=== PATIENT | female | born 1995 | race Caucasian/White ===

== ENCOUNTER 2017-05-19 06:39 | Emergency (ER) | payer SELFPAY | END 2017-05-19 07:53 | disposition left against medical advice (07) | LOC: EMS 06:41 | DX: Z53.21 Procedure and treatment not carried out due to patient leaving prior to being seen by health care provider (principal) ==

== ENCOUNTER 2017-09-17 18:55 | Inpatient (IN) | payer BC, MEDICAID ==
[~2017-09-17] VITALS: Ht 149.9 cm; Wt 49.0 kg
[2017-09-17] MEDS ORDERED: ZOLPIDEM TARTRATE 10 MG TABLET PO PRN (20:45)
[2017-09-17] MEDS ORDERED: OLANZapine 5 MG RAPDIS TABLET PO PRN (20:45)
[2017-09-17 21:08] LABS: BASOPHILS # (AUTO) 0.07 K/uL (0.00-0.20); BASOPHILS % (AUTO) 0.7 % (0.0-2.0); EOSINOPHILS # (AUTO) 0.03 K/uL (0.00-0.70); EOSINOPHILS % (AUTO) 0.23 % (1.0-6.0); HEMATOCRIT 38.8 % (36-46); HEMOGLOBIN 13.1 g/dL (12.0-16.0); LYMPHOCYTES % (AUTO) 18.2 % (22.0-44.0); MEAN CORPUSCULAR HEMOGLOBIN 30.8 pg (26.0-34.0); MEAN CORPUSCULAR HGB CONC 33.7 G/dL (31.0-37.0); MEAN CORPUSCULAR VOLUME 91 fL (80-100); MONOCYTES # (AUTO) 0.6 K/uL (0.1-1.0); MONOCYTES % (AUTO) 5.1 % (2.0-9.0); NEUTROPHILS # (AUTO) 8.4 K/uL (1.8-7.7); NEUTROPHILS % (AUTO) 75.8 % (40.0-70.0); PLATELET COUNT (AUTO) 219 K/uL (150-450); RED BLOOD CELL COUNT(AUTO) 4.25 MIL/uL (4.00-5.20); RED CELL DISTRIBUTION WIDTH 14.2 % (11.5-14.5); WHITE BLOOD COUNT (AUTO) 11.1 K/uL (4.5-11.0)
[2017-09-17 21:17] LABS: ANION GAP 15 mmol/L (8-16); CALCIUM, TOTAL 9.4 mg/dL (8.8-10.5); CARBON DIOXIDE 20 mmol/L (22-29); CHLORIDE 102 mmol/L (98-107); CREATININE 0.97 mg/dL (0.60-1.30); GLOMERULAR FILTR. RATE CALC > 60 mL/min (>60); POTASSIUM 3.4 mmol/L (3.5-5.1); SODIUM SERUM 137 mmol/L (136-145); UREA NITROGEN, BLOOD 15 mg/dL (7-18)
[2017-09-17 21:23] LABS: ALANINE AMINOTRANSFERASE 20 U/L (12-78); ASPARTATE AMINOTRANSFERASE 23 U/L (15-37); BILIRUBIN,TOTAL 1.7 mg/dL (0.1-1.0); TOTAL PROTEIN, SERUM 8.4 g/dL (6.4-8.2)
[2017-09-17 22:29] VITALS: BP 120/78
[2017-09-17] MEDS ORDERED: INFLUENZA VIRUS VACCINE QVS 2017-18 (3YR+)/PF 60 MCG/0.5 ML SYRINGE IM ONE (22:30)
[2017-09-18 07:11] VITALS: BP 110/62
[2017-09-18] MEDS ORDERED: POTASSIUM CHLORIDE 20 MEQ ER TABLET PO ONE (09:00)
[2017-09-18] MEDS ORDERED: ACETAMINOPHEN 325 MG TABLET PO PRN (13:00)
[2017-09-18] MEDS ORDERED: GuaiFENesin/D-METHORPHAN [SUGAR-FREE] 200-20MG/10 ML SYRUP UDCUP PO PRN (13:00)
[2017-09-18] MEDS ORDERED: MAGNESIUM HYDROXIDE SUSPENSION 30 ML UDCUP PO PRN (13:00)
[2017-09-18] MEDS ORDERED: MAG HYDROX/AL HYDROX/SIMETH ES 30 ML SUSPENSION UDCUP PO PRN (13:00)
[2017-09-18] MEDS ORDERED: LOPERAMIDE HCL 2 MG CAPSULE PO PRN (13:00)
[2017-09-18] MEDS ORDERED: TUBERCULIN, PURIFIED PROTEIN DERIVATIVE 5 TU/0.1 ML SYG ID ONE (13:00)
[2017-09-18] MEDS: GABAPENTIN 100 MG CAPSULE PO SCH ×2 (13:00→17:00)
[2017-09-18] MEDS ORDERED: HydrOXYzine PAMOATE 50 MG CAPSULE PO PRN (13:00)
[2017-09-18] MEDS ORDERED: PROMETHAZINE HCL 25 MG TABLET PO PRN (13:00)
[2017-09-18] MEDS: THIAMINE HCL 100 MG TABLET PO SCH (17:00)
[2017-09-18] MEDS: DIVALPROEX SODIUM 500 MG ER TABLET PO SCH (21:00)
[2017-09-18] MEDS: OLANZapine 5 MG RAPDIS TABLET PO SCH (21:00)
[2017-09-19 01:16] VITALS: BP 110/62
[2017-09-19] MEDS: MULTIVITAMINS WITH MINERALS, THERAPEUTIC TABLET PO SCH (08:32)
[2017-09-19] MEDS: FOLIC ACID 1 MG TABLET PO SCH (08:32)
[2017-09-19] MEDS: FLUoxetine HCL 20 MG CAPSULE PO SCH (08:32)
[2017-09-19] MEDS: THIAMINE HCL 100 MG TABLET PO SCH ×2 (08:32→16:45)
[2017-09-19] MEDS: LORazepam 2 MG TABLET PO PRN ×2 (08:33→16:15)
[2017-09-19] MEDS: GABAPENTIN 100 MG CAPSULE PO SCH ×3 (08:34→16:45)
[2017-09-19 08:37] VITALS: BP 118/74
[2017-09-19] MEDS: DIVALPROEX SODIUM 500 MG ER TABLET PO SCH (21:00)
[2017-09-19] MEDS: OLANZapine 5 MG RAPDIS TABLET PO SCH (21:00)
[2017-09-20 08:46] VITALS: BP 110/62
[2017-09-20] MEDS: THIAMINE HCL 100 MG TABLET PO SCH ×2 (09:28→16:52)
[2017-09-20] MEDS: GABAPENTIN 100 MG CAPSULE PO SCH ×3 (09:28→16:52)
[2017-09-20] MEDS: FOLIC ACID 1 MG TABLET PO SCH (09:28)
[2017-09-20] MEDS: FLUoxetine HCL 20 MG CAPSULE PO SCH (09:28)
[2017-09-20] MEDS: LORazepam 2 MG TABLET PO PRN (09:28)
[2017-09-20] MEDS: MULTIVITAMINS WITH MINERALS, THERAPEUTIC TABLET PO SCH (09:28)
[2017-09-20 16:26] VITALS: BP 106/68
[2017-09-20] MEDS: DIVALPROEX SODIUM 500 MG ER TABLET PO SCH (20:08)
[2017-09-20] MEDS: OLANZapine 5 MG RAPDIS TABLET PO SCH (20:08)
[2017-09-21] MEDS: GABAPENTIN 100 MG CAPSULE PO SCH ×3 (08:28→17:00)
[2017-09-21] MEDS: FLUoxetine HCL 20 MG CAPSULE PO SCH (08:28)
[2017-09-21] MEDS: THIAMINE HCL 100 MG TABLET PO SCH ×2 (08:28→17:00)
[2017-09-21] MEDS: MULTIVITAMINS WITH MINERALS, THERAPEUTIC TABLET PO SCH (08:29)
[2017-09-21] MEDS: FOLIC ACID 1 MG TABLET PO SCH (08:29)
[2017-09-21 08:43] VITALS: BP 114/71
[2017-09-21] MEDS: OLANZapine 10 MG RAPDIS TABLET PO SCH (20:46)
[2017-09-21] MEDS: DIVALPROEX SODIUM 500 MG ER TABLET PO SCH (20:46)
[2017-09-22 06:25] VITALS: BP 118/80
[2017-09-22 08:03] VITALS: BP 120/72
[2017-09-22] MEDS: MULTIVITAMINS WITH MINERALS, THERAPEUTIC TABLET PO SCH (09:37)
[2017-09-22] MEDS: THIAMINE HCL 100 MG TABLET PO SCH ×2 (09:38→17:22)
[2017-09-22] MEDS: FOLIC ACID 1 MG TABLET PO SCH (09:38)
[2017-09-22] MEDS: GABAPENTIN 100 MG CAPSULE PO SCH ×3 (09:38→17:22)
[2017-09-22] MEDS: FLUoxetine HCL 20 MG CAPSULE PO SCH (09:38)
[2017-09-22 17:28] VITALS: BP 114/64
[2017-09-22] MEDS: DIVALPROEX SODIUM 500 MG ER TABLET PO SCH (21:03)
[2017-09-22] MEDS: OLANZapine 10 MG RAPDIS TABLET PO SCH (21:04)
[2017-09-23 07:19] VITALS: BP 116/65
[2017-09-23] MEDS: THIAMINE HCL 100 MG TABLET PO SCH ×3 (09:00→16:39)
[2017-09-23] MEDS: FLUoxetine HCL 20 MG CAPSULE PO SCH ×2 (09:00→09:11)
[2017-09-23] MEDS: MULTIVITAMINS WITH MINERALS, THERAPEUTIC TABLET PO SCH ×2 (09:00→09:11)
[2017-09-23] MEDS: GABAPENTIN 100 MG CAPSULE PO SCH ×4 (09:00→16:39)
[2017-09-23] MEDS: FOLIC ACID 1 MG TABLET PO SCH ×2 (09:00→09:11)
[2017-09-23 09:48] VITALS: BP 116/66
[2017-09-23 16:45] VITALS: BP 117/68
[2017-09-23] MEDS: DIVALPROEX SODIUM 500 MG ER TABLET PO SCH (20:10)
[2017-09-23] MEDS: OLANZapine 10 MG RAPDIS TABLET PO SCH (20:10)
[2017-09-24] MEDS: FOLIC ACID 1 MG TABLET PO SCH (08:51)
[2017-09-24] MEDS: GABAPENTIN 100 MG CAPSULE PO SCH ×3 (08:51→16:35)
[2017-09-24] MEDS: FLUoxetine HCL 20 MG CAPSULE PO SCH (08:51)
[2017-09-24] MEDS: MULTIVITAMINS WITH MINERALS, THERAPEUTIC TABLET PO SCH (08:51)
[2017-09-24] MEDS: THIAMINE HCL 100 MG TABLET PO SCH ×2 (08:51→16:34)
[2017-09-24] MEDS ORDERED: DIVA500T52 PO (15:29)
[2017-09-24] MEDS ORDERED: FLUO-191 PO (15:29)
[2017-09-24] MEDS ORDERED: OLAN10TA22 PO (15:29)
[2017-09-24 16:04] VITALS: BP 111/72
[2017-09-24] MEDS ORDERED: GABA-529 PO (16:33)
[2017-09-25] MEDS ORDERED: FLUoxetine HCL 20 MG CAPSULE PO SCH (09:00)
== END 2017-09-24 18:45 | disposition home or self-care (01) | DRG 885 ==
LOC: EMS 18:56 → B3A 21:12
PROVIDERS: ADMIT Psychiatry & Neurology Psychiatry; ATTEND Psychiatry & Neurology Psychiatry
DX: F25.9 Schizoaffective disorder, unspecified (principal); Z91.19 Patient's noncompliance with other medical treatment and regimen; E78.5 Hyperlipidemia, unspecified; E87.6 Hypokalemia; G47.00 Insomnia, unspecified; F32.9 Major depressive disorder, single episode, unspecified; Z91.83 Wandering in diseases classified elsewhere; Z91.5 Personal history of self-harm; Z83.3 Family history of diabetes mellitus; Z83.49 Family history of other endocrine, nutritional and metabolic diseases; Z28.21 Immunization not carried out because of patient refusal
CPT/HCPCS: 99285; G0480

== ENCOUNTER 2017-10-22 15:48 | Inpatient (IN) | payer BC, MEDICAID ==
[~2017-10-22] VITALS: Ht 154.9 cm; Wt 59.4 kg
[~2017-10-22 15:48] MED LIST: DIVA500T52 PO; FLUO-191 PO; GABA-529 PO; OLAN10TA22 PO
[2017-10-22 18:05] LABS: BASOPHILS # (AUTO) 0.06 K/uL (0.00-0.20); BASOPHILS % (AUTO) 0.9 % (0.0-2.0); EOSINOPHILS % (AUTO) 0.04 % (1.0-6.0); HEMATOCRIT 38.2 % (36-46); HEMOGLOBIN 12.8 g/dL (12.0-16.0); LYMPHOCYTES # (AUTO) 0.9 K/uL (1.0-4.8); LYMPHOCYTES % (AUTO) 14.7 % (22.0-44.0); MEAN CORPUSCULAR HEMOGLOBIN 30.7 pg (26.0-34.0); MEAN CORPUSCULAR HGB CONC 33.5 G/dL (31.0-37.0); MEAN CORPUSCULAR VOLUME 92 fL (80-100); MONOCYTES # (AUTO) 0.5 K/uL (0.1-1.0); MONOCYTES % (AUTO) 7.2 % (2.0-9.0); NEUTROPHILS # (AUTO) 4.9 K/uL (1.8-7.7); NEUTROPHILS % (AUTO) 77.2 % (40.0-70.0); PLATELET COUNT (AUTO) 218 K/uL (150-450); RED BLOOD CELL COUNT(AUTO) 4.15 MIL/uL (4.00-5.20); RED CELL DISTRIBUTION WIDTH 14.2 % (11.5-14.5); WHITE BLOOD COUNT (AUTO) 6.4 K/uL (4.5-11.0)
[2017-10-22 18:13] LABS: ANION GAP 15 mmol/L (8-16); CALCIUM, TOTAL 8.9 mg/dL (8.8-10.5); CARBON DIOXIDE 20 mmol/L (22-29); CHLORIDE 100 mmol/L (98-107); CREATININE 0.87 mg/dL (0.60-1.30); GLOMERULAR FILTR. RATE CALC > 60 mL/min (>60); POTASSIUM 3.5 mmol/L (3.5-5.1); SODIUM SERUM 135 mmol/L (136-145); UREA NITROGEN, BLOOD 13 mg/dL (7-18)
[2017-10-22] MEDS ORDERED: OLANZapine 5 MG RAPDIS TABLET PO PRN (18:15)
[2017-10-22 18:20] LABS: ALANINE AMINOTRANSFERASE 21 U/L (12-78); ALBUMIN 4.2 g/dL (3.4-5.0); ASPARTATE AMINOTRANSFERASE 17 U/L (15-37); TOTAL PROTEIN, SERUM 8.1 g/dL (6.4-8.2)
[2017-10-22] MEDS: GABAPENTIN 100 MG CAPSULE PO SCH (19:28)
[2017-10-22 20:14] VITALS: BP 115/66
[2017-10-22] MEDS ORDERED: INFLUENZA VIRUS VACCINE QVS 2017-18 (3YR+)/PF 60 MCG/0.5 ML SYRINGE IM ONE (20:15)
[2017-10-22] MEDS: DIVALPROEX SODIUM 500 MG ER TABLET PO SCH (21:00)
[2017-10-22] MEDS: OLANZapine 10 MG RAPDIS TABLET PO SCH (21:00)
[2017-10-22] MEDS: ZOLPIDEM TARTRATE 10 MG TABLET PO PRN (23:50)
[2017-10-22] MEDS: LORazepam 2 MG TABLET PO PRN (23:50)
[2017-10-23 08:30] VITALS: BP 118/60
[2017-10-23 08:58] LABS: CHOL/HDL RATIO 3.1 (3.9-5.7)
[2017-10-23] MEDS: GABAPENTIN 100 MG CAPSULE PO SCH ×3 (09:16→16:46)
[2017-10-23] MEDS: FLUoxetine HCL 20 MG CAPSULE PO SCH (09:16)
[2017-10-23] MEDS ORDERED: PROMETHAZINE HCL 25 MG TABLET PO PRN ×2 (09:30)
[2017-10-23] MEDS ORDERED: GuaiFENesin/D-METHORPHAN [SUGAR-FREE] 200-20MG/10 ML SYRUP UDCUP PO PRN (09:30)
[2017-10-23] MEDS ORDERED: ACETAMINOPHEN 325 MG TABLET PO PRN (09:30)
[2017-10-23] MEDS ORDERED: MAG HYDROX/AL HYDROX/SIMETH ES 30 ML SUSPENSION UDCUP PO PRN (09:30)
[2017-10-23] MEDS ORDERED: LOPERAMIDE HCL 2 MG CAPSULE PO PRN (09:30)
[2017-10-23] MEDS ORDERED: MAGNESIUM HYDROXIDE SUSPENSION 30 ML UDCUP PO PRN (09:30)
[2017-10-23] MEDS: LORazepam 2 MG TABLET PO PRN (14:15)
[2017-10-23 16:08] VITALS: BP 100/60
[2017-10-23] MEDS: THIAMINE HCL 100 MG TABLET PO SCH (16:46)
[2017-10-23] MEDS: DIVALPROEX SODIUM 500 MG ER TABLET PO SCH (20:10)
[2017-10-23] MEDS: OLANZapine 10 MG RAPDIS TABLET PO SCH (20:13)
[2017-10-24 07:00] VITALS: BP 115/62
[2017-10-24 08:02] LABS: BASOPHILS % (AUTO) 0.9 % (0.0-2.0); EOSINOPHILS % (AUTO) 0.1 % (1.0-6.0); HEMATOCRIT 37.9 % (36-46); HEMOGLOBIN 12.9 g/dL (12.0-16.0); LYMPHOCYTES # (AUTO) 2.6 K/uL (1.0-4.8); MEAN CORPUSCULAR HEMOGLOBIN 31.5 pg (26.0-34.0); MEAN CORPUSCULAR VOLUME 92 fL (80-100); MONOCYTES # (AUTO) 0.6 K/uL (0.1-1.0); MONOCYTES % (AUTO) 10.6 % (2.0-9.0); NEUTROPHILS # (AUTO) 2.5 K/uL (1.8-7.7); NEUTROPHILS % (AUTO) 43.4 % (40.0-70.0); PLATELET COUNT (AUTO) 212 K/uL (150-450); RED CELL DISTRIBUTION WIDTH 14.5 % (11.5-14.5); WHITE BLOOD COUNT (AUTO) 5.7 K/uL (4.5-11.0)
[2017-10-24 08:24] LABS: ALANINE AMINOTRANSFERASE 17 U/L (12-78); ALBUMIN 3.6 g/dL (3.4-5.0); ANION GAP 7 mmol/L (8-16); ASPARTATE AMINOTRANSFERASE 12 U/L (15-37); BILIRUBIN,TOTAL 0.4 mg/dL (0.1-1.0); CALCIUM, TOTAL 8.7 mg/dL (8.8-10.5); CARBON DIOXIDE 28 mmol/L (22-29); CHLORIDE 105 mmol/L (98-107); CREATININE 1.02 mg/dL (0.60-1.30); GLOMERULAR FILTR. RATE CALC > 60 mL/min (>60); POTASSIUM 3.9 mmol/L (3.5-5.1); SODIUM SERUM 140 mmol/L (136-145); TOTAL PROTEIN, SERUM 7.4 g/dL (6.4-8.2); UREA NITROGEN, BLOOD 14 mg/dL (7-18)
[2017-10-24 08:27] VITALS: BP 118/62
[2017-10-24] MEDS: FOLIC ACID 1 MG TABLET PO SCH (08:40)
[2017-10-24] MEDS: MULTIVITAMINS WITH MINERALS, THERAPEUTIC TABLET PO SCH (08:40)
[2017-10-24] MEDS: FLUoxetine HCL 20 MG CAPSULE PO SCH (08:40)
[2017-10-24] MEDS: GABAPENTIN 100 MG CAPSULE PO SCH ×3 (08:40→17:04)
[2017-10-24] MEDS: THIAMINE HCL 100 MG TABLET PO SCH ×2 (08:41→17:04)
[2017-10-24] MEDS: LORazepam 2 MG TABLET PO PRN ×2 (08:47→16:05)
[2017-10-24 16:19] VITALS: BP 111/69
[2017-10-24] MEDS: DIVALPROEX SODIUM 500 MG ER TABLET PO SCH (20:15)
[2017-10-24] MEDS: OLANZapine 10 MG RAPDIS TABLET PO SCH (20:15)
[2017-10-24] MEDS: ZOLPIDEM TARTRATE 10 MG TABLET PO PRN (21:48)
[2017-10-25 07:12] VITALS: BP 100/60
[2017-10-25] MEDS: FOLIC ACID 1 MG TABLET PO SCH (09:42)
[2017-10-25] MEDS: GABAPENTIN 100 MG CAPSULE PO SCH ×2 (09:42→13:29)
[2017-10-25] MEDS: MULTIVITAMINS WITH MINERALS, THERAPEUTIC TABLET PO SCH (09:42)
[2017-10-25] MEDS: FLUoxetine HCL 20 MG CAPSULE PO SCH (09:42)
[2017-10-25] MEDS: THIAMINE HCL 100 MG TABLET PO SCH ×2 (09:44→16:20)
[2017-10-25] MEDS ORDERED: DIVA500T52 PO (14:43)
[2017-10-25] MEDS ORDERED: OLAN10TA22 PO (14:43)
[2017-10-25 16:22] VITALS: BP 133/85
[2017-10-25] MEDS: DIVALPROEX SODIUM 500 MG ER TABLET PO SCH (20:15)
[2017-10-25] MEDS: OLANZapine 10 MG RAPDIS TABLET PO SCH (20:16)
[2017-10-25] MEDS: LORazepam 2 MG TABLET PO PRN (20:16)
[2017-10-25] MEDS: ZOLPIDEM TARTRATE 10 MG TABLET PO PRN (20:16)
[2017-10-26 08:30] VITALS: BP 120/70
[2017-10-26] MEDS: MULTIVITAMINS WITH MINERALS, THERAPEUTIC TABLET PO SCH (08:30)
[2017-10-26] MEDS: FOLIC ACID 1 MG TABLET PO SCH (08:30)
[2017-10-26] MEDS: THIAMINE HCL 100 MG TABLET PO SCH (08:30)
== END 2017-10-26 14:10 | disposition home or self-care (01) | DRG 885 ==
LOC: EMS 15:49 → B3A 19:12
PROVIDERS: ADMIT Psychiatry & Neurology Psychiatry; ATTEND Psychiatry & Neurology Psychiatry
DX: F25.9 Schizoaffective disorder, unspecified (principal); R45.851 Suicidal ideations; Z91.19 Patient's noncompliance with other medical treatment and regimen; Z28.21 Immunization not carried out because of patient refusal; Z79.899 Other long term (current) drug therapy; Z65.3 Problems related to other legal circumstances; Z63.9 Problem related to primary support group, unspecified
CPT/HCPCS: 87081; 90471; 99285; G0480

== ENCOUNTER 2018-01-04 16:38 | Inpatient (IN) | payer BC, MEDICAID ==
[~2018-01-04] VITALS: Ht 152.4 cm; Wt 62.1 kg
[~2018-01-04 16:38] MED LIST changes: -FLUO-191 PO; -GABA-529 PO
[2018-01-04] MEDS ORDERED: RISP2 PO (17:47)
[2018-01-04] MEDS ORDERED: HALOPERIDOL 5 MG TABLET PO PRN (20:00)
[2018-01-04] MEDS ORDERED: LORazepam 2 MG TABLET PO PRN (20:00)
[2018-01-04 20:10] LABS: BASOPHILS % (AUTO) 0.3 % (0.0-2.0); EOSINOPHILS % (AUTO) 0 % (1.0-6.0); HEMATOCRIT 35.7 % (36-46); LYMPHOCYTES # (AUTO) 2.2 K/uL (1.0-4.8); LYMPHOCYTES % (AUTO) 29.3 % (22.0-44.0); MEAN CORPUSCULAR HGB CONC 33.6 G/dL (31.0-37.0); MEAN CORPUSCULAR VOLUME 89 fL (80-100); MONOCYTES # (AUTO) 0.5 K/uL (0.1-1.0); MONOCYTES % (AUTO) 6.1 % (2.0-9.0); NEUTROPHILS # (AUTO) 4.8 K/uL (1.8-7.7); NEUTROPHILS % (AUTO) 64.3 % (40.0-70.0); PLATELET COUNT (AUTO) 181 K/uL (150-450); RED BLOOD CELL COUNT(AUTO) 4.01 MIL/uL (4.00-5.20); RED CELL DISTRIBUTION WIDTH 14.8 % (11.5-14.5)
[2018-01-04 20:36] LABS: AMPHET/METH SCREEN,URINE NEGATIVE (NEGATIVE); BARBITURATE SCREEN, URINE NEGATIVE (NEGATIVE); BENZODIAZEPINES SCREEN,URINE NEGATIVE (NEGATIVE); CANNABINOID SCREEN,URINE POSITIVE (NEGATIVE); COCAINE SCREEN,URINE NEGATIVE (NEGATIVE); METHADONE SCREEN, URINE NEGATIVE (NEGATIVE); OPIATE SCREEN,URINE NEGATIVE (NEGATIVE)
[2018-01-04 20:37] LABS: PHENCYCLIDINE SCREEN,URINE NEGATIVE (NEGATIVE)
[2018-01-04 20:45] LABS: ANION GAP 10 mmol/L (8-16); CALCIUM, TOTAL 8.7 mg/dL (8.8-10.5); CARBON DIOXIDE 26 mmol/L (22-29); CHLORIDE 104 mmol/L (98-107); CREATININE 0.62 mg/dL (0.60-1.30); GLOMERULAR FILTR. RATE CALC > 60 mL/min (>60); GLUCOSE,RANDOM 120 mg/dL (70-110); POTASSIUM 3.8 mmol/L (3.5-5.1); SODIUM SERUM 140 mmol/L (136-145); UREA NITROGEN, BLOOD 21 mg/dL (7-18)
[2018-01-04 20:49] LABS: ALANINE AMINOTRANSFERASE 29 U/L (12-78); ALBUMIN 3.7 g/dL (3.4-5.0); ALKALINE PHOSPHATASE 86 U/L (46-116); ASPARTATE AMINOTRANSFERASE 20 U/L (15-37); BILIRUBIN,TOTAL 0.2 mg/dL (0.1-1.0); TOTAL PROTEIN, SERUM 7.1 g/dL (6.4-8.2)
[2018-01-04] MEDS ORDERED: OLANZapine 10 MG TABLET PO SCH (21:00)
[2018-01-04 21:21] VITALS: BP 102/60
[2018-01-05 09:45] VITALS: BP 90/58
[2018-01-05 10:21] LABS: APPEARANCE,URINE CLEAR (CLEAR); BILIRUBIN,URINE NEGATIVE (NEGATIVE); GLUCOSE, URINE (UA) NEGATIVE (NEGATIVE); KETONES,URINE NEGATIVE (NEGATIVE); LEUKOCYTE ESTERASE ,URINE NEGATIVE (NEGATIVE); NITRATE,URINE NEGATIVE (NEGATIVE); OCCULT BLOOD,URINE NEGATIVE (NEGATIVE); PH,URINE 7.5 (5.0-8.0); PROTEIN,URINE NEGATIVE (NEGATIVE); UROBILINOGEN,URINE 0.2 mg/dL (<=1.0)
[2018-01-05] MEDS: DIVALPROEX SODIUM 500 MG ER TABLET PO SCH (20:11)
[2018-01-05] MEDS: OLANZapine 10 MG TABLET PO SCH (20:12)
[2018-01-05 21:15] VITALS: BP 106/69
[2018-01-05] MEDS: ZOLPIDEM TARTRATE 10 MG TABLET PO PRN (21:23)
[2018-01-06 02:23] VITALS: BP 98/67
[2018-01-06 08:45] VITALS: BP 92/58
[2018-01-06] MEDS: OLANZapine 5 MG TABLET PO SCH ×2 (08:53→10:00)
[2018-01-06 17:00] VITALS: BP 100/55
[2018-01-06] MEDS: DIVALPROEX SODIUM 500 MG ER TABLET PO SCH (20:21)
[2018-01-06] MEDS: OLANZapine 10 MG TABLET PO SCH (20:21)
[2018-01-06] MEDS: ZOLPIDEM TARTRATE 10 MG TABLET PO PRN (21:00)
[2018-01-07 03:52] VITALS: BP 103/80
[2018-01-07 08:46] VITALS: BP 98/57
[2018-01-07] MEDS: OLANZapine 5 MG TABLET PO SCH (08:51)
[2018-01-07] MEDS ORDERED: DIVA500T52 PO (12:45)
[2018-01-07] MEDS ORDERED: OLAN10TA3 PO (12:46)
[2018-01-07] MEDS ORDERED: OLAN5TAB2 PO (12:46)
== END 2018-01-07 14:15 | disposition home or self-care (01) | DRG 885 ==
LOC: EMS 16:39 → 3EI 20:06 → 3EX 20:06
DX: F25.1 Schizoaffective disorder, depressive type (principal); E87.1 Hypo-osmolality and hyponatremia; F12.20 Cannabis dependence, uncomplicated; E87.6 Hypokalemia; Z87.891 Personal history of nicotine dependence; Z79.899 Other long term (current) drug therapy; Z82.69 Family history of other diseases of the musculoskeletal system and connective tissue; Z83.3 Family history of diabetes mellitus
CPT/HCPCS: G0480

== ENCOUNTER 2018-07-08 08:48 | Emergency (ER) | payer BC, OTHER ==
[~2018-07-08] VITALS: Ht 157.5 cm; Wt 54.5 kg
[~2018-07-08 08:48] MED LIST changes: -OLAN10TA22 PO; +OLAN10TA3 PO; +OLAN5TAB2 PO
[2018-07-08] MEDS ORDERED: TRAZ-219 PO (12:27)
[2018-07-08] MEDS ORDERED: HYDR50CA10 PO (12:27)
[2018-07-08] MEDS ORDERED: LORA1TAB3 PO (12:27)
[2018-07-08 12:48] LABS: BASOPHILS % (AUTO) 0.6 % (0.0-2.0); EOSINOPHILS % (AUTO) 0 % (1.0-6.0); HEMATOCRIT 39.4 % (36-46); HEMOGLOBIN 13.2 g/dL (12.0-16.0); LYMPHOCYTES # (AUTO) 2.2 K/uL (1.0-4.8); MEAN CORPUSCULAR HEMOGLOBIN 30.9 pg (26.0-34.0); MEAN CORPUSCULAR HGB CONC 33.7 G/dL (31.0-37.0); MEAN CORPUSCULAR VOLUME 92 fL (80-100); MONOCYTES # (AUTO) 0.4 K/uL (0.1-1.0); MONOCYTES % (AUTO) 6.4 % (2.0-9.0); NEUTROPHILS # (AUTO) 4.2 K/uL (1.8-7.7); PLATELET COUNT (AUTO) 235 K/uL (150-450); RED BLOOD CELL COUNT(AUTO) 4.29 MIL/uL (4.00-5.20); RED CELL DISTRIBUTION WIDTH 15.6 % (11.5-14.5)
[2018-07-08 12:53] LABS: ANION GAP 8 mmol/L (8-16); CARBON DIOXIDE 27 mmol/L (22-29); CHLORIDE 102 mmol/L (98-107); CREATININE 0.86 mg/dL (0.60-1.30); GLOMERULAR FILTR. RATE CALC > 60 mL/min (>60); GLUCOSE,RANDOM 100 mg/dL (70-110); SODIUM SERUM 137 mmol/L (136-145); UREA NITROGEN, BLOOD 16 mg/dL (7-18)
[2018-07-08 12:59] LABS: ALANINE AMINOTRANSFERASE 16 U/L (12-78); ALKALINE PHOSPHATASE 74 U/L (46-116); ASPARTATE AMINOTRANSFERASE 14 U/L (15-37); BILIRUBIN,TOTAL 0.4 mg/dL (0.1-1.0)
[2018-07-08] MEDS ORDERED: LORazepam 2 MG TABLET PO ONE (13:15)
[2018-07-08 14:19] VITALS: BP 100/60
== END 2018-07-08 15:36 | disposition home or self-care (01) ==
LOC: EMS 08:49
DX: F41.9 Anxiety disorder, unspecified (principal); R45.851 Suicidal ideations; F25.9 Schizoaffective disorder, unspecified; Z79.899 Other long term (current) drug therapy
CPT/HCPCS: 80053; 84703; 85025; 99285; G0480

== ENCOUNTER 2022-08-01 15:43 | Inpatient (IN) | payer MEDICAID ==
[~2022-08-01] VITALS: Ht 149.9 cm; Wt 63.0 kg
[~2022-08-01 15:43] MED LIST changes: -DIVA500T52 PO; +LITH300C3 PO; -OLAN10TA3 PO; -OLAN5TAB2 PO; +RISP3TAB44 PO
[2022-08-01 19:55] VITALS: BP 94/61
[2022-08-01] MEDS: LORazepam 2 MG TABLET PO PRN (20:55)
[2022-08-02 07:19] LABS: BASOPHILS % (AUTO) 0.1 % (0.0-2.0); EOSINOPHILS % (AUTO) 0 % (1.0-6.0); HEMATOCRIT 40.6 % (36-46); HEMOGLOBIN 13.1 g/dL (12.0-16.0); LYMPHOCYTES # (AUTO) 2.8 K/uL (1.0-4.8); LYMPHOCYTES % (AUTO) 38.3 % (22.0-44.0); MEAN CORPUSCULAR HEMOGLOBIN 29.4 pg (26.0-34.0); MEAN CORPUSCULAR HGB CONC 32.4 G/dL (31.0-37.0); MEAN CORPUSCULAR VOLUME 91 fL (80-100); MONOCYTES # (AUTO) 0.6 K/uL (0.1-1.0); MONOCYTES % (AUTO) 7.8 % (2.0-9.0); NEUTROPHILS # (AUTO) 3.9 K/uL (1.8-7.7); NEUTROPHILS % (AUTO) 53.8 % (40.0-70.0); PLATELET COUNT (AUTO) 205 K/uL (150-450); RED BLOOD CELL COUNT(AUTO) 4.46 MIL/uL (4.00-5.20); RED CELL DISTRIBUTION WIDTH 14.3 % (11.5-14.5)
[2022-08-02 07:33] LABS: HEMOGLOBIN A1C 5.4 % (3.8-5.6)
[2022-08-02 07:59] LABS: ALANINE AMINOTRANSFERASE 12 U/L (12-78); ALBUMIN 3.4 g/dL (3.4-5.0); ALKALINE PHOSPHATASE 71 U/L (46-116); ANION GAP 8 mmol/L (8-16); ASPARTATE AMINOTRANSFERASE 15 U/L (15-37); BILIRUBIN,TOTAL 0.7 mg/dL (0.1-1.0); CALCIUM, TOTAL 8.8 mg/dL (8.8-10.5); CARBON DIOXIDE 27 mmol/L (22-29); CHLORIDE 103 mmol/L (98-107); CHOL/HDL RATIO 3.3 (3.9-5.7); CHOLESTEROL 125 mg/dL (131-200); CREATININE 0.75 mg/dL (0.60-1.30); FREE T4 (FREE THYROXINE) 0.82 ng/dL (0.76-1.46); GLUCOSE,RANDOM 86 mg/dL (70-110); HCG,QUANTITATIVE < 1 mIU/mL (0-6); HDL CHOLESTEROL 38 mg/dL (40-60); LDL CHOL (CALC.) 73 mg/dL (0-130); POTASSIUM 3.7 mmol/L (3.5-5.1); SODIUM SERUM 138 mmol/L (136-145); THYROID STIMULATING HORMONE 1.51 uIU/mL (0.36-3.74); TOTAL PROTEIN, SERUM 6.8 g/dL (6.4-8.2); TRIGLYCERIDES 72 mg/dL (15-150); UREA NITROGEN, BLOOD 11 mg/dL (7-18)
[2022-08-02 08:00] LABS: GLOMERULAR FILTR. RATE CALC > 60 mL/min (>60)
[2022-08-02 08:46] VITALS: BP 91/68
[2022-08-02] MEDS: FLUoxetine HCL 20 MG CAPSULE PO SCH (12:06)
[2022-08-02] MEDS: OLANZapine 7.5 MG TABLET PO SCH (12:06)
[2022-08-02] MEDS: LORazepam 2 MG TABLET PO PRN (13:48)
[2022-08-02 13:49] VITALS: BP 96/68
[2022-08-02] MEDS: GABAPENTIN 300 MG CAPSULE PO SCH (17:03)
[2022-08-02] MEDS: ZOLPIDEM TARTRATE 10 MG TABLET PO PRN (20:21)
[2022-08-03] MEDS: OLANZapine 7.5 MG TABLET PO SCH (09:25)
[2022-08-03] MEDS: GABAPENTIN 300 MG CAPSULE PO SCH ×2 (09:25→17:27)
[2022-08-03] MEDS: FLUoxetine HCL 20 MG CAPSULE PO SCH (09:25)
[2022-08-03 11:37] VITALS: BP 97/60
[2022-08-03] MEDS: LORazepam 2 MG TABLET PO PRN (15:01)
[2022-08-03 20:00] VITALS: BP 112/61
[2022-08-03] MEDS: ZOLPIDEM TARTRATE 10 MG TABLET PO PRN (21:38)
[2022-08-04] MEDS: OLANZapine 7.5 MG TABLET PO SCH (08:43)
[2022-08-04] MEDS: GABAPENTIN 300 MG CAPSULE PO SCH ×2 (08:43→16:13)
[2022-08-04] MEDS: FLUoxetine HCL 20 MG CAPSULE PO SCH (08:43)
[2022-08-04] MEDS: LORazepam 2 MG TABLET PO PRN ×2 (12:12→16:40)
[2022-08-04] MEDS ORDERED: IBUPROFEN 600 MG TABLET PO PRN (18:45)
[2022-08-04 20:31] VITALS: BP 112/67
[2022-08-04] MEDS: ZOLPIDEM TARTRATE 10 MG TABLET PO PRN (20:38)
[2022-08-04] MEDS: HALOPERIDOL 5 MG TABLET PO PRN (20:39)
[2022-08-05 09:00] VITALS: BP 118/72
[2022-08-05] MEDS: GABAPENTIN 300 MG CAPSULE PO SCH ×2 (09:22→16:09)
[2022-08-05] MEDS: FLUoxetine HCL 20 MG CAPSULE PO SCH (09:22)
[2022-08-05] MEDS: OLANZapine 7.5 MG TABLET PO SCH (09:22)
[2022-08-05 09:24] LABS: APPEARANCE,URINE CLEAR (CLEAR); BILIRUBIN,URINE NEGATIVE (NEGATIVE); GLUCOSE, URINE (UA) NEGATIVE (NEGATIVE); KETONES,URINE NEGATIVE (NEGATIVE); LEUKOCYTE ESTERASE ,URINE NEGATIVE (NEGATIVE); NITRATE,URINE NEGATIVE (NEGATIVE); OCCULT BLOOD,URINE NEGATIVE (NEGATIVE); PROTEIN,URINE NEGATIVE (NEGATIVE); UROBILINOGEN,URINE <=1.0 mg/dL (<=1.0)
[2022-08-05 09:31] LABS: AMPHET/METH SCREEN,URINE NEGATIVE (NEGATIVE); BARBITURATE SCREEN, URINE NEGATIVE (NEGATIVE); BENZODIAZEPINES SCREEN,URINE NEGATIVE (NEGATIVE); CANNABINOID SCREEN,URINE POSITIVE (NEGATIVE); COCAINE SCREEN,URINE NEGATIVE (NEGATIVE); METHADONE SCREEN, URINE NEGATIVE (NEGATIVE); OPIATE SCREEN,URINE NEGATIVE (NEGATIVE)
[2022-08-05 09:35] LABS: PHENCYCLIDINE SCREEN,URINE NEGATIVE (NEGATIVE)
[2022-08-05] MEDS: ACETAMINOPHEN 325 MG TABLET PO PRN (10:12)
[2022-08-05] MEDS: LORazepam 2 MG TABLET PO PRN (10:26)
[2022-08-05] MEDS: HALOPERIDOL 5 MG TABLET PO PRN ×2 (12:23→17:16)
[2022-08-05 20:06] VITALS: BP 109/67
[2022-08-05] MEDS: ZOLPIDEM TARTRATE 10 MG TABLET PO PRN (20:22)
[2022-08-06 10:02] VITALS: BP 110/60
[2022-08-06] MEDS: FLUoxetine HCL 20 MG CAPSULE PO SCH (10:18)
[2022-08-06] MEDS: GABAPENTIN 300 MG CAPSULE PO SCH ×2 (10:18→16:36)
[2022-08-06] MEDS: OLANZapine 7.5 MG TABLET PO SCH (10:18)
[2022-08-06] MEDS: ACETAMINOPHEN 325 MG TABLET PO PRN (14:45)
[2022-08-06] MEDS: LORazepam 2 MG TABLET PO PRN (14:45)
[2022-08-06] MEDS: HALOPERIDOL 5 MG TABLET PO PRN (20:05)
[2022-08-06 20:06] VITALS: BP 101/60
[2022-08-06] MEDS: ZOLPIDEM TARTRATE 10 MG TABLET PO PRN (21:07)
[2022-08-07] MEDS: OLANZapine 7.5 MG TABLET PO SCH (09:41)
[2022-08-07] MEDS: FLUoxetine HCL 20 MG CAPSULE PO SCH (09:41)
[2022-08-07] MEDS: GABAPENTIN 300 MG CAPSULE PO SCH ×2 (09:41→16:45)
[2022-08-07 10:01] LABS: GLUCOMETER DEV NAME(LOC) POC.BV
[2022-08-07] MEDS: HALOPERIDOL 5 MG TABLET PO PRN (12:24)
[2022-08-07 14:23] VITALS: BP 110/67
[2022-08-07] MEDS: LORazepam 2 MG TABLET PO PRN (14:25)
[2022-08-07] MEDS: ACETAMINOPHEN 325 MG TABLET PO PRN (16:24)
[2022-08-07 20:15] VITALS: BP 105/67
[2022-08-07] MEDS: ZOLPIDEM TARTRATE 10 MG TABLET PO PRN (21:18)
[2022-08-08] MEDS: GABAPENTIN 300 MG CAPSULE PO SCH ×2 (08:52→16:28)
[2022-08-08] MEDS: OLANZapine 7.5 MG TABLET PO SCH (08:52)
[2022-08-08] MEDS: FLUoxetine HCL 20 MG CAPSULE PO SCH (08:52)
[2022-08-08 09:11] VITALS: BP 109/72
[2022-08-08] MEDS: HALOPERIDOL 5 MG TABLET PO PRN (13:03)
[2022-08-08] MEDS: LORazepam 2 MG TABLET PO PRN (13:03)
[2022-08-08] MEDS: ZOLPIDEM TARTRATE 10 MG TABLET PO PRN (20:41)
[2022-08-08 20:49] VITALS: BP 103/64
[2022-08-09 08:29] VITALS: BP 111/61
[2022-08-09] MEDS: GABAPENTIN 300 MG CAPSULE PO SCH (08:40)
[2022-08-09] MEDS: OLANZapine 7.5 MG TABLET PO SCH (08:41)
[2022-08-09] MEDS: FLUoxetine HCL 20 MG CAPSULE PO SCH (09:41)
[2022-08-09] MEDS: HALOPERIDOL 5 MG TABLET PO PRN (11:02)
[2022-08-09] MEDS: LORazepam 2 MG TABLET PO PRN ×2 (11:02→22:15)
[2022-08-09] MEDS: ZOLPIDEM TARTRATE 10 MG TABLET PO PRN (21:05)
[2022-08-09 21:34] VITALS: BP 115/70
[2022-08-10 08:26] VITALS: BP 116/80
[2022-08-10] MEDS: OLANZapine 7.5 MG TABLET PO SCH (08:31)
[2022-08-10] MEDS: FLUoxetine HCL 20 MG CAPSULE PO SCH (08:31)
[2022-08-10] MEDS: GABAPENTIN 300 MG CAPSULE PO SCH ×2 (08:32→16:04)
[2022-08-10] MEDS ORDERED: TUBERCULIN, PURIFIED PROTEIN DERIVATIVE 5 TU/0.1 ML SYRINGE ID ONE (09:00)
[2022-08-10] MEDS: LORazepam 2 MG TABLET PO PRN ×2 (09:25→14:16)
[2022-08-10] MEDS: HALOPERIDOL 5 MG TABLET PO PRN ×2 (10:16→14:16)
[2022-08-10] MEDS: ZOLPIDEM TARTRATE 10 MG TABLET PO PRN (20:05)
[2022-08-11 01:03] VITALS: BP 110/67
[2022-08-11] MEDS: OLANZapine 7.5 MG TABLET PO SCH (08:20)
[2022-08-11] MEDS: FLUoxetine HCL 20 MG CAPSULE PO SCH (08:20)
[2022-08-11] MEDS: GABAPENTIN 300 MG CAPSULE PO SCH ×2 (08:20→16:15)
[2022-08-11 08:45] VITALS: BP 118/74
[2022-08-11] MEDS: LORazepam 2 MG TABLET PO PRN ×2 (12:09→17:56)
[2022-08-11] MEDS: HALOPERIDOL 5 MG TABLET PO PRN (14:02)
[2022-08-11] MEDS: ZOLPIDEM TARTRATE 10 MG TABLET PO PRN (20:26)
[2022-08-11 20:42] VITALS: BP 103/63
[2022-08-12 08:40] VITALS: BP 116/69
[2022-08-12] MEDS ORDERED: PALIPERIDONE PALMITATE 234 MG/1.5 ML SYRINGE IM SCH (09:00)
[2022-08-12] MEDS: FLUoxetine HCL 20 MG CAPSULE PO SCH (10:04)
[2022-08-12] MEDS: OLANZapine 7.5 MG TABLET PO SCH (10:04)
[2022-08-12] MEDS: GABAPENTIN 300 MG CAPSULE PO SCH ×2 (10:04→16:12)
[2022-08-12] MEDS: LORazepam 2 MG TABLET PO PRN ×2 (10:04→15:54)
[2022-08-12] MEDS: HALOPERIDOL 5 MG TABLET PO PRN ×2 (10:49→15:54)
[2022-08-12] MEDS: ZOLPIDEM TARTRATE 10 MG TABLET PO PRN (20:11)
[2022-08-12 22:26] VITALS: BP 122/58
[2022-08-13 08:00] VITALS: BP 118/70
[2022-08-13] MEDS: GABAPENTIN 300 MG CAPSULE PO SCH ×2 (09:25→16:06)
[2022-08-13] MEDS: FLUoxetine HCL 20 MG CAPSULE PO SCH (09:25)
[2022-08-13] MEDS: OLANZapine 7.5 MG TABLET PO SCH (09:26)
[2022-08-13] MEDS: HALOPERIDOL 5 MG TABLET PO PRN (12:32)
[2022-08-13] MEDS: LORazepam 2 MG TABLET PO PRN ×2 (12:32→20:36)
[2022-08-13] MEDS: ZOLPIDEM TARTRATE 10 MG TABLET PO PRN (20:36)
[2022-08-14 07:10] VITALS: BP 112/69
[2022-08-14 08:15] VITALS: BP 116/79
[2022-08-14 09:06] LABS: GLUCOMETER DEV NAME(LOC) POC.BV
[2022-08-14] MEDS: FLUoxetine HCL 20 MG CAPSULE PO SCH (09:33)
[2022-08-14] MEDS: GABAPENTIN 300 MG CAPSULE PO SCH ×2 (09:34→16:36)
[2022-08-14] MEDS: OLANZapine 7.5 MG TABLET PO SCH (09:34)
[2022-08-14] MEDS: HALOPERIDOL 5 MG TABLET PO PRN ×2 (13:30→20:33)
[2022-08-14] MEDS: LORazepam 2 MG TABLET PO PRN ×2 (13:52→20:33)
[2022-08-14 20:00] VITALS: BP 115/70
[2022-08-14] MEDS: ZOLPIDEM TARTRATE 10 MG TABLET PO PRN (22:20)
[2022-08-15] MEDS: OLANZapine 7.5 MG TABLET PO SCH (08:38)
[2022-08-15] MEDS: GABAPENTIN 300 MG CAPSULE PO SCH ×2 (08:38→16:15)
[2022-08-15] MEDS: FLUoxetine HCL 20 MG CAPSULE PO SCH (08:38)
[2022-08-15] MEDS: HALOPERIDOL 5 MG TABLET PO PRN (10:58)
[2022-08-15] MEDS: LORazepam 2 MG TABLET PO PRN ×2 (12:12→20:06)
[2022-08-15] MEDS: ZOLPIDEM TARTRATE 10 MG TABLET PO PRN (20:06)
[2022-08-15 21:39] VITALS: BP 112/65
[2022-08-16 08:05] VITALS: BP 118/74
[2022-08-16] MEDS: FLUoxetine HCL 20 MG CAPSULE PO SCH (09:19)
[2022-08-16] MEDS: OLANZapine 7.5 MG TABLET PO SCH (09:19)
[2022-08-16] MEDS: GABAPENTIN 300 MG CAPSULE PO SCH ×2 (09:19→16:21)
[2022-08-16] MEDS: LORazepam 2 MG TABLET PO PRN ×2 (12:09→17:31)
[2022-08-16] MEDS: HALOPERIDOL 5 MG TABLET PO PRN ×2 (12:09→17:31)
[2022-08-16] MEDS: ZOLPIDEM TARTRATE 10 MG TABLET PO PRN (20:06)
[2022-08-16 20:10] VITALS: BP 99/65
[2022-08-17 08:07] VITALS: BP 118/79
[2022-08-17] MEDS: OLANZapine 7.5 MG TABLET PO SCH (08:55)
[2022-08-17] MEDS: GABAPENTIN 300 MG CAPSULE PO SCH ×2 (08:55→16:25)
[2022-08-17] MEDS: FLUoxetine HCL 20 MG CAPSULE PO SCH (08:55)
[2022-08-17 12:27] VITALS: BP 112/7
[2022-08-17] MEDS: ACETAMINOPHEN 325 MG TABLET PO PRN (12:27)
[2022-08-17] MEDS: LORazepam 2 MG TABLET PO PRN ×2 (12:45→20:42)
[2022-08-17] MEDS: HALOPERIDOL 5 MG TABLET PO PRN ×2 (12:45→20:42)
[2022-08-17 20:10] VITALS: BP 107/65
[2022-08-17] MEDS: ZOLPIDEM TARTRATE 10 MG TABLET PO PRN (20:42)
[2022-08-18] MEDS: GABAPENTIN 300 MG CAPSULE PO SCH ×2 (08:17→16:42)
[2022-08-18] MEDS: FLUoxetine HCL 20 MG CAPSULE PO SCH (08:17)
[2022-08-18 08:18] VITALS: BP 106/72
[2022-08-18] MEDS: OLANZapine 7.5 MG TABLET PO SCH (08:18)
[2022-08-18] MEDS: LORazepam 2 MG TABLET PO PRN ×2 (13:23→21:25)
[2022-08-18] MEDS: ZOLPIDEM TARTRATE 10 MG TABLET PO PRN (20:03)
[2022-08-18 20:19] VITALS: BP 111/74
[2022-08-19] MEDS: GABAPENTIN 300 MG CAPSULE PO SCH ×2 (08:39→16:09)
[2022-08-19] MEDS: OLANZapine 7.5 MG TABLET PO SCH (08:40)
[2022-08-19] MEDS: LORazepam 2 MG TABLET PO PRN ×3 (08:40→18:17)
[2022-08-19] MEDS: FLUoxetine HCL 20 MG CAPSULE PO SCH (08:40)
[2022-08-19 11:50] VITALS: BP 124/78
[2022-08-19] MEDS: HALOPERIDOL 5 MG TABLET PO PRN (18:17)
[2022-08-19] MEDS: ZOLPIDEM TARTRATE 10 MG TABLET PO PRN (20:01)
[2022-08-19 20:23] VITALS: BP 112/74
[2022-08-20] MEDS: HALOPERIDOL 5 MG TABLET PO PRN (00:28)
[2022-08-20] MEDS: OLANZapine 7.5 MG TABLET PO SCH (08:58)
[2022-08-20] MEDS: GABAPENTIN 300 MG CAPSULE PO SCH ×2 (08:58→16:04)
[2022-08-20] MEDS: FLUoxetine HCL 20 MG CAPSULE PO SCH (08:59)
[2022-08-20] MEDS: LORazepam 2 MG TABLET PO PRN (17:09)
[2022-08-20] MEDS: ZOLPIDEM TARTRATE 10 MG TABLET PO PRN (20:00)
[2022-08-20 20:09] VITALS: BP 109/69
[2022-08-21] MEDS: FLUoxetine HCL 20 MG CAPSULE PO SCH (08:42)
[2022-08-21] MEDS: GABAPENTIN 300 MG CAPSULE PO SCH (08:42)
[2022-08-21] MEDS: OLANZapine 7.5 MG TABLET PO SCH (08:43)
[2022-08-21] MEDS ORDERED: OLAN7.5T22 PO (09:08)
[2022-08-21] MEDS ORDERED: GABA-1181 PO (09:08)
[2022-08-21] MEDS ORDERED: FLUO20CA36 PO (09:08)
[2022-08-21] MEDS ORDERED: PALI234D IM (09:08)
[2022-08-21 15:21] LABS: GLUCOMETER DEV NAME(LOC) POC.BV
== END 2022-08-21 10:57 | DRG 750 ==
LOC: B2S 19:45 → B3A 08-09 15:45
PROVIDERS: ADMIT Psychiatry & Neurology Child & Adolescent Psychiatry; ATTEND Psychiatry & Neurology Child & Adolescent Psychiatry
DX: F25.1 Schizoaffective disorder, depressive type (principal); I95.9 Hypotension, unspecified; R45.851 Suicidal ideations; F22 Delusional disorders; Z91.14 Patient's other noncompliance with medication regimen; Z20.822 Contact with and (suspected) exposure to COVID-19; R73.9 Hyperglycemia, unspecified; F15.90 Other stimulant use, unspecified, uncomplicated; F31.9 Bipolar disorder, unspecified; Z59.00 Homelessness unspecified; Z83.3 Family history of diabetes mellitus; Z88.8 Allergy status to other drugs, medicaments and biological substances; Z79.899 Other long term (current) drug therapy
CPT/HCPCS: 80053; 80061; 80307; 81003; 83036; 84439; 84443; 84702; 85025